=== PATIENT | male | born 1975 ===

== ENCOUNTER 2022-10-05 11:05 | Emergency (ER) | payer OTHER ==
[2022-10-05 11:18] VITALS: TEMP 98.7
[2022-10-05] MEDS ORDERED: DEXAMETHASONE SOD PHOSPHATE 10 MG/ML 1 ML VIAL IVP ONE (11:37)
[2022-10-05] MEDS ORDERED: KETOROLAC 15 MG/ML 1 ML VIAL IVP STA (11:37)
[2022-10-05] MEDS ORDERED: SODIUM CHLORIDE 0.9% 2,000 ML IV STA (11:38)
--- NOTE | 2022-10-05 11:44 | ED ---
Headache HPI - General Chief Complaint: Fever Stated Complaint: Fever,Numbness,Sore throat Time Seen by Provider: 10/05/22 11:23 Source: patient, RN notes reviewed Mode of arrival: ambulatory Limitations: no limitations - History of Present Illness Initial Comments: This is a 47-year-old male who presents to the emergency department for fevers, headaches, a sore throat, and right hand numbness. States that yesterday he was experiencing fevers, headaches, nausea, and vomiting. The fever, nausea, and vomiting have since resolved. The headache is improved but still present. States that he seemed like he may have slept on his neck wrong as he is now expressing right-sided neck pain with numbness in the fingers of the right hand. Also feels like his throat is very sore and it is painful to swallow. He has a minor cough but denies any chest pain or shortness of breath. He has not had any sick contacts. He originally went to [facility], who instructed him to come to the emergency department. Denies any dyspnea, chest pain, palpitations, abdominal pain, or diarrhea. MD Complaint: headache Onset/Timin -: days(s) - Related Data Previous Rx's Medication Instructions Recorded Cyclobenzaprine [Flexeril] 10 mg PO TID PRN #15 tab 10/05/22 Penicillin V Potassium [Pen Vee K] 500 mg PO BID 7 Days #14 tablet 10/05/22 Allergies Allergy/AdvReac Type Severity Reaction Status Date / Time No Known Allergies Allergy Verified 10/05/22 12:38 Review of Systems ROS Statement: Those systems with pertinent positive or pertinent negative responses have been documented in the HPI. ROS Other: All systems not noted in ROS Statement are negative. Past Medical History Past Medical History: No Reported History History of Any Multi-Drug Resistant Organisms: None Reported Past Surgical History: Appendectomy Past Psychological History: No Psychological Hx Reported Smoking Status: Never smoker Past Alcohol Use History: Rare General Exam Limitations: no limitations General appearance: alert, in no apparent distress Head exam: Present: atraumatic, normocephalic, normal inspection ENT exam: Present: other (3+ tonsillar hypertrophy with exudates and posterior pharyngeal erythema) Neck exam: Present: other (Tenderness to palpation over the right side of the neck.) Respiratory exam: Present: normal lung sounds bilaterally. Absent: respiratory distress, wheezes, rales, rhonchi, stridor Cardiovascular Exam: Present: regular rate, normal rhythm, normal heart sounds. Absent: systolic murmur, diastolic murmur, rubs, gallop, clicks Extremities exam: Present: other (Negative Phalen's and Tinel's sign on the right. 2+ radial pulses and capillary refill <1 second.) Back exam: Present: normal inspection Neurological exam: Present: alert, oriented X3, CN II-XII intact Psychiatric exam: Present: normal affect, normal mood Skin exam: Present: warm, dry, intact, normal color. Absent: rash Course Vital Signs 10/05/22 10/05/22 10/05/22 11:11 11:59 13:44 Temperature 98.7 F Pulse Rate 91 89 82 Respiratory 18 18 16 Rate Blood Pressure 146/94 125/80 O2 Sat by Pulse 93 L 94 L 96 Oximetry Medical Decision Making - Medical Decision Making This is a 47-year-old male who presents to the emergency department for headaches, a sore throat, and right hand numbness. Was pt. sent in by a medical professional or institution? @ -Urgent care Did you speak to anyone other than the patient for history? @ -No Did you review nursing and triage notes? @ -Yes, and I agree, it is accurate with regards to the patient's symptoms. Were old charts reviewed? @ -No Differential Diagnosis? @ -Differential Headache: Migraine, tension, cluster, carbon monoxide, central venous thrombosis, pension karma temporal arteritis, acute closure glaucoma, intercranial hemorrhage, mastoiditis, sinusitis, head injury, this is not meant to be an all-inclusive list. -Differential Sore Throat: Strep pharyngitis, herpes zoster, COVID, influenza, GERD, allergic rhinitis, mononucleosis, this is not meant to be an all-inclusive list. X-rays interpreted by me (1pt min.)? @ -Chest x-ray obtained, my interpretation identifies no localized consolidations or infiltrates. X-ray of the cervical spine obtained as well. My interpretation identifies no acute fractures. What testing was considered but not performed? (CT, X-rays, U/S, labs)? Why? @ -None What meds were considered but not given? Why? @ -None Did you discuss the management of the patient with other professionals? @ -No Did you reconcile home meds? @ -No Was smoking cessation discussed for >3mins.? @ -No Was critical care preformed (if so, how long)? @ -No Were there social determinants of health that impacted care today? How? (Homelessness, low income, unemployed, alcoholism, drug addiction, transportation, low edu. Level, literacy, decrease access to med. care, long-term, rehab)? @ -No Was there de-escalation of care discussed even if they declined? (Discuss DNR or withdrawal of care, Hospice)? @ -No What co-morbidities impacted this encounter? (DM, HTN, Smoking, COPD, CAD, Cancer, CVA, Hep., AIDS, mental health diagnosis, sleep apnea, morbid obesity)? @ -Morbid obesity Was patient admitted / discharged? @ -Discharged. Lab work obtained revealing leukocytosis and no other actionable findings. Patient positive for strep throat. He was given IV fluids, Toradol, and Decadron, which he states was helpful for his symptoms. Chest x-ray and x-ray of the cervical spine obtained revealing no notable findings. Numbness of the right hand is suspicious for cervical radiculopathy, especially given the associated neck pain. Prescriptions for Flexeril and Pen- Vee K provided with dosing instructions reviewed. Advised that the Flexeril is sedating and he should avoid driving or operating machinery when taking this. Otherwise advised ibuprofen and Tylenol as needed for discomfort and applying warm compresses to the neck. Undiagnosed new problem with uncertain prognosis? @ -None Drug Therapy requiring intensive monitoring for toxicity (Heparin, Nitro, Insulin, Cardizem)? @ -None Were any procedures done? @ -None Diagnosis/symptom? @ -Strep throat, cervical radiculopathy Acute, or Chronic, or Acute on Chronic? @ -Acute Uncomplicated (without systemic symptoms) or Complicated (systemic symptoms)? @ -Uncomplicated Side effects of treatment? @ -None Exacerbation, Progression, or Severe Exacerbation] @ -Not applicable Poses a threat to life or bodily function? @ -No Return precautions reviewed in depth, the patient is instructed to return to the emergency department with any new, worsening, or concerning symptoms. Patient verbalized understanding. This case was discussed in detail with the attending ED physician, Dr. Crowell. Presentation, findings, and treatment plan discussed in detail as well. - Lab Data Result diagrams: 10/05/22 11:52 10/05/22 11:52 Lab Results 10/05/22 10/05/22 10/05/22 Range/Units 11:52 11:52 11:52 WBC 17.7 H (3.8-10.6) k/uL RBC 5.25 (4.30-5.90) m/uL Hgb 15.2 (13.0-17.5) gm/dL Hct 44.7 (39.0-53.0) % MCV 85.0 (80.0-100.0) fL MCH 28.9 (25.0-35.0) pg MCHC 33.9 (31.0-37.0) g/dL RDW 13.9 (11.5-15.5) % Plt Count 241 (150-450) k/uL MPV 7.8 Neutrophils % 79 % Lymphocytes % 11 % Monocytes % 6 % Eosinophils % 1 % Basophils % 0 % Neutrophils # 13.9 H (1.3-7.7) k/uL Lymphocytes # 2.0 (1.0-4.8) k/uL Monocytes # 1.1 H (0-1.0) k/uL Eosinophils # 0.1 (0-0.7) k/uL Basophils # 0.1 (0-0.2) k/uL Sodium 135 L (137-145) mmol/L Potassium 4.0 (3.5-5.1) mmol/L Chloride 100 (98-107) mmol/L Carbon Dioxide 24 (22-30) mmol/L Anion Gap 11 mmol/L BUN 9 (9-20) mg/dL Creatinine 0.82 (0.66-1.25) mg/dL Est GFR (CKD-EPI)AfAm >90 (>60 ml/min/1.73 sqM) Est GFR (CKD-EPI)NonAf >90 (>60 ml/min/1.73 sqM) Glucose 106 H (74-99) mg/dL Plasma Lactic Acid Sukhjinder (0.7-2.0) mmol/L Calcium 8.8 (8.4-10.2) mg/dL Total Bilirubin 1.2 (0.2-1.3) mg/dL AST 27 (17-59) U/L ALT 28 (4-49) U/L Alkaline Phosphatase 72 (38-126) U/L Total Protein 7.2 (6.3-8.2) g/dL Albumin 4.0 (3.5-5.0) g/dL TSH 7.930 H (0.465-4.680) mIU/L Free T4 0.82 (0.78-2.19) ng/dL Heterophile Antibody Negative (Negative) Influenza Type A (PCR) (Not Detectd) Influenza Type B (PCR) (Not Detectd) RSV (PCR) (Not Detectd) SARS-CoV-2 (PCR) (Not Detectd) Group A Strep (PCR) (Not Detectd) 10/05/22 10/05/22 10/05/22 Range/Units 11:52 11:52 12:10 WBC (3.8-10.6) k/uL RBC (4.30-5.90) m/uL Hgb (13.0-17.5) gm/dL Hct (39.0-53.0) % MCV (80.0-100.0) fL MCH (25.0-35.0) pg MCHC (31.0-37.0) g/dL RDW (11.5-15.5) % Plt Count (150-450) k/uL MPV Neutrophils % % Lymphocytes % % Monocytes % % Eosinophils % % Basophils % % Neutrophils # (1.3-7.7) k/uL Lymphocytes # (1.0-4.8) k/uL Monocytes # (0-1.0) k/uL Eosinophils # (0-0.7) k/uL Basophils # (0-0.2) k/uL Sodium (137-145) mmol/L Potassium (3.5-5.1) mmol/L Chloride (98-107) mmol/L Carbon Dioxide (22-30) mmol/L Anion Gap mmol/L BUN (9-20) mg/dL Creatinine (0.66-1.25) mg/dL Est GFR (CKD-EPI)AfAm (>60 ml/min/1.73 sqM) Est GFR (CKD-EPI)NonAf (>60 ml/min/1.73 sqM) Glucose (74-99) mg/dL Plasma Lactic Acid Sukhjinder 1.1 (0.7-2.0) mmol/L Calcium (8.4-10.2) mg/dL Total Bilirubin (0.2-1.3) mg/dL AST (17-59) U/L ALT (4-49) U/L Alkaline Phosphatase (38-126) U/L Total Protein (6.3-8.2) g/dL Albumin (3.5-5.0) g/dL TSH (0.465-4.680) mIU/L Free T4 (0.78-2.19) ng/dL Heterophile Antibody (Negative) Influenza Type A (PCR) Not Detected (Not Detectd) Influenza Type B (PCR) Not Detected (Not Detectd) RSV (PCR) Not Detected (Not Detectd) SARS-CoV-2 (PCR) Not Detected (Not Detectd) Group A Strep (PCR) DETECTED A (Not Detectd) - Radiology Data Radiology results: report reviewed, image reviewed Disposition Clinical Impression: Cervical radiculopathy, Strep pharyngitis Disposition: HOME SELF-CARE Instructions (If sedation given, give patient instructions): Strep Throat (ED), Cervical Radiculopathy (ED) Additional Instructions: Return to the emergency department with any new, worsening, or concerning symptoms. Take the antibiotics as prescribed for 7 days. Alternate with ibuprofen and Tylenol as needed for pain relief. You can apply warm compresses to the neck. You can take the Flexeril up to 3 times daily. Be aware that this may be sedating and you should take it at night until you how it affects you. Follow up with your primary care provider in 1-2 days. Prescriptions: Cyclobenzaprine [Flexeril] 10 mg PO TID PRN #15 tab PRN Reason: Pain Penicillin V Potassium [Pen Vee K] 500 mg PO BID 7 Days #14 tablet Is patient prescribed a controlled substance at d/c from ED?: No Referrals: Nonstaff,Physician [Primary Care Provider] - 1-2 days
--- NOTE | 2022-10-05 12:15 | XR ---
EXAMINATION TYPE: XR chest 2V DATE OF EXAM: 10/05/2022 12:09 PM COMPARISON: None TECHNIQUE: XR chest 2V Frontal and lateral views of the chest. CLINICAL INDICATION:Male, 47 years old with history of Pain; FINDINGS: Lungs/Pleura: Low lung volumes are present. There is no evidence of pleural effusion, focal consolida tion, or pneumothorax. Pulmonary vascularity: Unremarkable. Heart/mediastinum: Cardiomediastinal silhouette is unremarkable. Musculoskeletal: No acute osseous pathology. IMPRESSION: No acute cardiopulmonary disease/process.
--- NOTE | 2022-10-05 12:15 | XR ---
EXAMINATION TYPE: XR cervical spine comp DATE OF EXAM: 10/05/2022 12:09 PM INDICATION: Patient age:Male; 47 years old; Reason for study: Pain; COMPARISON: None TECHNIQUE: The cervical spine was imaged in frontal, lateral, odontoid and bilateral oblique. FINDINGS: The osseous structures show normal alignment without evidence of an acute fracture. There are osteoph ytes noted throughout the cervical spine on the anterior and lateral aspects of the vertebral bodies. The intervertebral disk spaces are narrowed at multiple levels Pedicles are intact. Soft tissues ar e within normal limits. The odontoid appears intact. IMPRESSION: 1. No fracture or dislocation. 2. Mild degenerative disc disease changes of the cervical spine.
[2022-10-05 12:19] LABS: Basophils # (A) 0.1 k/uL (0-0.2); Basophils % (A) 0 %; Eosinophils # (A) 0.1 k/uL (0-0.7); Eosinophils % (A) 1 %; HCT 44.7 % (39.0-53.0); HGB 15.2 gm/dL (13.0-17.5); Lymphocytes % (A) 11 %; MCH 28.9 pg (25.0-35.0); MCHC 33.9 g/dL (31.0-37.0); Mean Platelet Volume 7.8; Monocytes # (A) 1.1 k/uL (0-1.0); Monocytes % (A) 6 %; Neutrophils # (A) 13.9 k/uL (1.3-7.7); Neutrophils % (A) 79 %; Platelet Count 241 k/uL (150-450); RBC 5.25 m/uL (4.30-5.90); RDW 13.9 % (11.5-15.5); WBC 17.7 k/uL (3.8-10.6)
[2022-10-05 12:41] LABS: ALT 28 U/L (4-49); AST 27 U/L (17-59); African American GFR (CKD) >90 (>60 ml/min/1.73 sqM); Alkaline Phosphatase 72 U/L (38-126); Anion Gap 11 mmol/L; Blood Urea Nitrogen 9 mg/dL (9-20); Calcium 8.8 mg/dL (8.4-10.2); Carbon Dioxide 24 mmol/L (22-30); Chloride 100 mmol/L (98-107); Glucose 106 mg/dL (74-99); Non-African American GFR(CKD) >90 (>60 ml/min/1.73 sqM); Sodium 135 mmol/L (137-145); Total Bilirubin 1.2 mg/dL (0.2-1.3); Total Protein 7.2 g/dL (6.3-8.2)
[2022-10-05 13:45] VITALS: BP 125/80; PULSE 82; RESP 16
[2022-10-05 13:47] LABS: T4, Free (Free Thyroxine) 0.82 ng/dL (0.78-2.19)
== END 2022-10-05 13:45 | disposition home or self-care (01) ==
LOC: EC 11:05
DX: J02.0 Streptococcal pharyngitis (principal); M54.12 Radiculopathy, cervical region; B95.0 Streptococcus, group A, as the cause of diseases classified elsewhere; Z20.822 Contact with and (suspected) exposure to COVID-19
CPT/HCPCS: 36415; 87651; 84439; 80053; 84443; 83605; 85025; 86308; 87636; 72050; 71046; 99284; 96374; 96375; 96361; J1100; J1885